=== PATIENT | female | born 1980 | race Caucasian/White ===

== ENCOUNTER 2018-06-22 16:04 | Inpatient (IN) | payer OTHER ==
[~2018-06-22] VITALS: Ht 157.5 cm; Wt 64.4 kg
[2018-06-22] MEDS ORDERED: PRENATAL 19 TA1 EAC1 PO (18:09)
== END 2018-07-02 13:23 | disposition home or self-care (01) | DRG 782 ==
LOC: LDR 16:04 → SURG-SUITE 06-24 19:42
PROVIDERS: Obstetrics & Gynecology Maternal & Fetal Medicine
PROC: 4A1HXCZ Monitoring of Products of Conception, Cardiac Rate, External Approach (ICD-10-PCS; 2018-06-22)
PROC: 0UVC7ZZ Restriction of Cervix, Via Natural or Artificial Opening (ICD-10-PCS; principal; 2018-06-23 14:30)
PROC: BU4CZZZ Ultrasonography of Uterus and Ovaries (ICD-10-PCS; 2018-06-24)
PROC: BU4CZZZ Ultrasonography of Uterus and Ovaries (ICD-10-PCS; 2018-07-01)
DX: O34.32 Maternal care for cervical incompetence, second trimester (principal); O30.092 Twin pregnancy, unable to determine number of placenta and number of amniotic sacs, second trimester; O26.872 Cervical shortening, second trimester; Z3A.19 19 weeks gestation of pregnancy

== ENCOUNTER 2018-07-16 09:35 | Outpatient (CLI) | payer OTHER ==
[~2018-07-16 09:35] MED LIST: PRENATAL 19 TA1 EAC1 PO
[2018-07-16] MEDS ORDERED: NIFE60TA3 PO (12:31)
== END 2018-07-16 10:15 | disposition home or self-care (01) ==
LOC: NST 09:35
DX: Z34.82 Encounter for supervision of other normal pregnancy, second trimester (principal)

== ENCOUNTER 2018-07-16 11:36 | Inpatient (IN) | payer OTHER ==
[~2018-07-16] VITALS: Ht 157.5 cm; Wt 64.9 kg
[2018-07-16] MEDS ORDERED: NIFE60TA3 PO (12:31)
== END 2018-08-28 11:44 | disposition home or self-care (01) | DRG 831 ==
LOC: OB/GYN 11:36 → LDR 11:36 → OB/GYN 07-18 10:19
PROC: 4A1HXCZ Monitoring of Products of Conception, Cardiac Rate, External Approach (ICD-10-PCS; principal; 2018-07-16)
PROC: BU4CZZZ Ultrasonography of Uterus and Ovaries (ICD-10-PCS; 2018-07-16)
PROC: BY4DZZZ Ultrasonography of Second Trimester, Multiple Gestation (ICD-10-PCS; 2018-07-21)
PROC: 3E0F7GC Introduction of Other Therapeutic Substance into Respiratory Tract, Via Natural or Artificial Opening (ICD-10-PCS; 2018-07-27)
PROC: BY4DZZZ Ultrasonography of Second Trimester, Multiple Gestation (ICD-10-PCS; 2018-07-30)
PROC: BU4CZZZ Ultrasonography of Uterus and Ovaries (ICD-10-PCS; 2018-07-30)
PROC: BU4CZZZ Ultrasonography of Uterus and Ovaries (ICD-10-PCS; 2018-08-05)
PROC: BY4CZZZ Ultrasonography of Second Trimester, Single Fetus (ICD-10-PCS; 2018-08-05)
PROC: BY4DZZZ Ultrasonography of Second Trimester, Multiple Gestation (ICD-10-PCS; 2018-08-17)
PROC: BU4CZZZ Ultrasonography of Uterus and Ovaries (ICD-10-PCS; 2018-08-17)
PROC: BY4GZZZ Ultrasonography of Third Trimester, Multiple Gestation (ICD-10-PCS; 2018-08-26)
PROC: BU4CZZZ Ultrasonography of Uterus and Ovaries (ICD-10-PCS; 2018-08-26)
DX: O60.02 Preterm labor without delivery, second trimester (principal); O34.32 Maternal care for cervical incompetence, second trimester; O30.042 Twin pregnancy, dichorionic/diamniotic, second trimester; Z34.02 Encounter for supervision of normal first pregnancy, second trimester
CPT/HCPCS: 240

== ENCOUNTER 2018-09-08 09:14 | Outpatient (CLI) | payer OTHER ==
[~2018-09-08 09:14] MED LIST changes: +NIFE60TA3 PO
== END 2018-09-08 09:55 | disposition home or self-care (01) ==
LOC: NST 09:14
DX: Z34.83 Encounter for supervision of other normal pregnancy, third trimester (principal)

== ENCOUNTER 2018-09-10 14:32 | Inpatient (IN) | payer OTHER ==
[~2018-09-10] VITALS: Ht 157.5 cm; Wt 70.3 kg
== END 2018-09-13 17:05 | disposition home or self-care (01) | DRG 786 ==
LOC: LDR 14:32 → OB/GYN 19:57
PROVIDERS: ADMIT Obstetrics & Gynecology
PROC: 10D00Z1 Extraction of Products of Conception, Low, Open Approach (ICD-10-PCS; principal; 2018-09-11)
PROC: 4A1HXCZ Monitoring of Products of Conception, Cardiac Rate, External Approach (ICD-10-PCS; 2018-09-11)
DX: O60.14X2 Preterm labor third trimester with preterm delivery third trimester, fetus 2 (principal); O34.33 Maternal care for cervical incompetence, third trimester; O30.043 Twin pregnancy, dichorionic/diamniotic, third trimester; Z3A.31 31 weeks gestation of pregnancy; Z37.2 Twins, both liveborn

== ENCOUNTER 2019-02-26 17:23 | Emergency (ER) | payer OTHER ==
[~2019-02-26] VITALS: Ht 157.5 cm; Wt 57.2 kg
== END 2019-02-26 22:54 | disposition home or self-care (01) ==
LOC: ER 17:23
DX: K29.70 Gastritis, unspecified, without bleeding (principal)

== ENCOUNTER 2020-07-19 10:59 | Outpatient (CLI) | payer OTHER | END 2020-07-19 11:40 | disposition home or self-care (01) | LOC: NST 10:59 | PROVIDERS: ATTEND Obstetrics & Gynecology | DX: Z34.82 Encounter for supervision of other normal pregnancy, second trimester (principal) ==

== ENCOUNTER 2020-07-23 18:40 | Outpatient (CLI) | payer OTHER | END 2020-07-23 19:28 | disposition home or self-care (01) | LOC: NST 18:40 | PROVIDERS: ATTEND Obstetrics & Gynecology | DX: Z34.82 Encounter for supervision of other normal pregnancy, second trimester (principal) ==